=== PATIENT | female | born 1960 | race Caucasian/White ===

== ENCOUNTER 2016-04-01 10:38 | Day surgery (SDC) | payer OTHER ==
[~2016-04-01] VITALS: Ht 167.6 cm; Wt 72.7 kg
[~2016-04-01 10:38] MED LIST: HYDR-3812 PO; KETO10TA PO; ONDA4TAB8 PO; PANT40TA2 PO
--- OUTSIDE RECORDS SUMMARY | 2016-04-01 10:42 | XMS REPORT | Continuity of Care Document ---
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 Phone NO, LOCAL PHYSICIAN PCP Unavailable Insurance Providers Payer Name Policy Number Subscriber Name Relationship Unknown Briseyda Gonzalez 18 Self / Same As Patient Advance Directives Directive Response Recorded Date/Time Advance Directives No 12/20/15 6:38pm Resuscitation Status Full Code 12/20/15 6:38pm Chief Complaint and Reason for Visit Chief Complaint Abdominal/GI Problems Reason for Visit Cyst of right ovary Cholelithiasis Problems Active Problems Medical Problem Onset Date Status Cholelithiasis Unknown Acute Cyst of right ovary Unknown Acute Medications Current Home Medications Medication Dose Units Route Directions Days/Qty Instructions Start Date Ondansetron 4 Mg 4 Mg Oral Every 4HRS for Nausea/Vomiting 10 12/20/15 Pantoprazole Sodium 40 Mg 40 Mg Oral Daily 15 12/20/15 Ketorolac Tromethamine 10 Mg 10 Mg Oral Every 6 Hours for Pain 15 Social History Social History Problem Response Recorded Date/Time Alcohol Use Denies Use 12/20/2015 6:38pm Recreational Drug Use No 12/20/2015 6:38pm Recent Foreign Travel No 12/20/2015 6:36pm Recent Infectious Disease Exposure No 12/20/2015 6:36pm Hospitalization with Isolation Denies 12/20/2015 6:36pm Smoking Status Never a Smoker 12/20/2015 6:38pm Recent Hopitalizations No 12/20/2015 6:38pm Hospitalization with Isolation Denies 12/20/2015 6:36pm Query Response Start Date Stop Date Smoking Status Never a Smoker Hospital Discharge Instructions No hospital discharge instructions. Plan of Care Discharge Date 12/20/15 8:35pm Disposition 01 HOME, SELF-CARE Condition at Discharge Improved Instructions/Education Provided Ovarian Cyst (ED) Cholelithiasis (ED) Prescriptions See Medication Section Referrals THANIA TORRES MD - ,LOCAL PHYSICIAN - Primary Care Physician Additional Instructions/Education CLEAR LIQUIDS--WATER, BROTH, JELLO, GATORADE BRATS DIET--BANANAS, RICE, APPLESAUCE, TOAST, SALTINES FOLLOW UP WITH DR. TORRES THIS WEEK FOR FURTHER CARE All discharge instructions reviewed with patient and/or family. Voiced understanding. Functional Status No functional status results. Allergies, Adverse Reactions, Alerts No known allergies. Immunizations No immunization records. Vital Signs Acute Vital Signs Vital Response Date/Time Temperature (Fahrenheit) 97.6 degrees F (97.6 - 99.5) 12/20/2015 6:36pm Temperature (Calculated Celsius) 36.59888 degrees C (36.4 - 37.5) 12/20/2015 6:36pm Pulse Rate (adult) 95 bpm (60 - 90) 12/20/2015 6:36pm Respiratory Rate 18 bpm (12 - 24) 12/20/2015 6:36pm Blood Pressure 156/85 mm Hg 12/20/2015 6:36pm Blood Pressure Mean 108 mm Hg 12/20/2015 6:36pm Pain Numeric Pain Scale 4 12/20/2015 6:36pm Height (Feet) 5 feet 12/20/2015 6:36pm Height (Inches) 6 inches 12/20/2015 6:36pm Height (Calculated Centimeters) 167.399688 cm 12/20/2015 6:36pm Weight (Pounds) 163 pounds 12/20/2015 6:36pm Weight (Calculated Kilograms) 73.696510 kilograms 12/20/2015 6:36pm Capillary Refill Capillary Refill Less Than 3 Seconds 12/20/2015 6:36pm Height 5 ft 6 in Weight 163 lb Body Mass Index 26.3 kg/m^2 Results Laboratory Results Test Name Result Units Flags Reference Collection Date/Time Result Date/ Time Comments White Blood Count 8.6 10^3/uL 4.3-11.0 12/20/2015 6:49pm 12/20/2015 6: 59pm Red Blood Count 4.80 10^6/uL 4.35-5.85 12/20/2015 6:49pm 12/20/2015 6: 59pm Hemoglobin 14.5 G/DL 11.5-16.0 12/20/2015 6:49pm 12/20/2015 6:59pm Hematocrit 43 % 35-52 12/20/2015 6:49pm 12/20/2015 6:59pm Mean Corpuscular Volume 89 FL 80-99 12/20/2015 6:49pm 12/20/2015 6: 59pm Mean Corpuscular Hemoglobin 30 PG 25-34 12/20/2015 6:49pm 12/20/2015 6: 59pm Mean Corpuscular Hemoglobin Concent 34 G/DL 32-36 12/20/2015 6:49pm 6:59pm Red Cell Distribution Width 13.5 % 10.0-14.5 12/20/2015 6:49pm 2015 6:59pm Platelet Count 286 10^3/uL 130-400 12/20/2015 6:49pm 12/20/2015 6:59pm Mean Platelet Volume 10.1 FL 7.4-10.4 12/20/2015 6:49pm 12/20/2015 6: 59pm Neutrophils (%) (Auto) 63 % 42-75 12/20/2015 6:49pm 12/20/2015 6:59pm Lymphocytes (%) (Auto) 26 % 12-44 12/20/2015 6:49pm 12/20/2015 6:59pm Monocytes (%) (Auto) 10 % 0-12 12/20/2015 6:49pm 12/20/2015 6:59pm Eosinophils (%) (Auto) 1 % 0-10 12/20/2015 6:49pm 12/20/2015 6:59pm Basophils (%) (Auto) 1 % 0-10 12/20/2015 6:49pm 12/20/2015 6:59pm Neutrophils # (Auto) 5.4 X 10^3 1.8-7.8 12/20/2015 6:49pm 12/20/2015 6: 59pm Lymphocytes # (Auto) 2.2 X 10^3 1.0-4.0 12/20/2015 6:49pm 12/20/2015 6: 59pm Monocytes # (Auto) 0.9 X 10^3 0.0-1.0 12/20/2015 6:49pm 12/20/2015 6: 59pm Eosinophils # (Auto) 0.1 10^3/uL 0.0-0.3 12/20/2015 6:49pm 12/20/2015 6 :59pm Basophils # (Auto) 0.0 10^3/uL 0.0-0.1 12/20/2015 6:49pm 12/20/2015 6: 59pm Urine Color YELLOW 12/20/2015 6:45pm 12/20/2015 7:08pm Urine Clarity CLEAR 12/20/2015 6:45pm 12/20/2015 7:08pm Urine pH 6 5-9 12/20/2015 6:45pm 12/20/2015 7:08pm Urine Specific [place] 1.010 * 1.016-1.022 12/20/2015 6:45pm 2015 7:08pm Urine Protein NEGATIVE NEGATIVE 12/20/2015 6:45pm 12/20/2015 7:08pm Urine Glucose (UA) NEGATIVE NEGATIVE 12/20/2015 6:45pm 12/20/2015 7: 08pm Urine RBC (Auto) NEGATIVE NEGATIVE 12/20/2015 6:45pm 12/20/2015 7: 08pm Urine Ketones NEGATIVE NEGATIVE 12/20/2015 6:45pm 12/20/2015 7:08pm Urine Nitrite NEGATIVE NEGATIVE 12/20/2015 6:45pm 12/20/2015 7:08pm Urine Bilirubin NEGATIVE NEGATIVE 12/20/2015 6:45pm 12/20/2015 7: 08pm Urine Urobilinogen NORMAL MG/DL NORMAL 12/20/2015 6:45pm 12/20/2015 7: 08pm Urine Leukocyte Esterase 2+ * NEGATIVE 12/20/2015 6:45pm 12/20/2015 7: 08pm Urine RBC NONE /HPF 12/20/2015 6:45pm 12/20/2015 7:08pm Urine WBC 5-10 /HPF * 12/20/2015 6:45pm 12/20/2015 7:08pm Urine Bacteria NEGATIVE /HPF 12/20/2015 6:45pm 12/20/2015 7:08pm Urine Squamous Epithelial Cells 5-10 /HPF 12/20/2015 6:45pm 2015 7:08pm Urine Crystals NONE /LPF 12/20/2015 6:45pm 12/20/2015 7:08pm Urine Casts NONE /LPF 12/20/2015 6:45pm 12/20/2015 7:08pm Urine Mucus NEGATIVE /LPF 12/20/2015 6:45pm 12/20/2015 7:08pm Urine Culture Indicated YES 12/20/2015 6:45pm 12/20/2015 7:08pm Sodium Level 144 MMOL/L 135-145 12/20/2015 6:49pm 12/20/2015 7:25pm Potassium Level 3.7 MMOL/L 3.6-5.0 12/20/2015 6:49pm 12/20/2015 7:25pm Chloride Level 105 MMOL/L 98-107 12/20/2015 6:49pm 12/20/2015 7:25pm Carbon Dioxide Level 25 MMOL/L 21-32 12/20/2015 6:49pm 12/20/2015 7: 25pm Anion Gap 14 MMOL/L 5-14 12/20/2015 6:49pm 12/20/2015 7:25pm Blood Urea Nitrogen 16 MG/DL 7-18 12/20/2015 6:49pm 12/20/2015 7:25pm Creatinine 0.78 MG/DL 0.60-1.30 12/20/2015 6:49pm 12/20/2015 7:25pm BUN/Creatinine Ratio 21 12/20/2015 6:49pm 12/20/2015 7:25pm Estimat Glomerular Filtration Rate > 60 12/20/2015 6:49pm 2015 7:25pm GFR INTERPRETIVE DATA UNITS FOR ESTIMATED GFR (eGFR): mL/min/1.73 M2 REFERENCE RANGE FOR ESTIMATED GFR (eGFR) eGFR NORMAL eGFR >60 MODERATELY DECREASED eGFR 30-59 SEVERLY DECREASED eGFR 15-29 KIDNEY FAILURE <15 (OR DIALYSIS) Glucose Level 93 MG/DL 70-105 12/20/2015 6:49pm 12/20/2015 7:25pm Calcium Level 9.7 MG/DL 8.5-10.1 12/20/2015 6:49pm 12/20/2015 7:25pm Total Bilirubin 0.5 MG/DL 0.1-1.0 12/20/2015 6:49pm 12/20/2015 7:25pm Alkaline Phosphatase 66 U/L 40-136 12/20/2015 6:49pm 12/20/2015 7:25pm Aspartate Amino Transf (AST/SGOT) 24 U/L 5-34 12/20/2015 6:49pm 2015 7:25pm Alanine Aminotransferase (ALT/SGPT) 18 U/L 0-55 12/20/2015 6:49pm 12/19 7:25pm Total Protein 7.4 G/DL 6.4-8.2 12/20/2015 6:49pm 12/20/2015 7:25pm Albumin 4.9 G/DL H 3.2-4.5 12/20/2015 6:49pm 12/20/2015 7:25pm Amylase Level 63 U/L 25-125 12/20/2015 6:49pm 12/20/2015 7:25pm Lipase 18 U/L 8-78 12/20/2015 6:49pm 12/20/2015 7:25pm Procedures No known history of procedures. Encounters Encounter Location Arrival/Admit Date Discharge/Depart Date Attending Provider Departed Emergency Room [facility] 12/20/15 6:02pm 12/19 8:35pm LITO MON DO Recent Diagnosis
[2016-04-01] MEDS ORDERED: ceFAZolin 1,000 MG (ANCEF) VIAL ONE (10:43)
[2016-04-01] MEDS ORDERED: NORMAL SALINE (BAXTER MINI) 50 ML IV ONE (10:43)
--- OUTSIDE RECORDS SUMMARY | 2016-04-01 10:43 | XMS REPORT | Continuity of Care Document ---
Author Author [facility] Organization 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 Phone NO, LOCAL PHYSICIAN PCP [...] - 99.5) 12/20/2015 6:36pm Temperature (Calculated Celsius) 36.84050 degrees C (36.4 - 37.5) 12/20/2015 6:36pm Pulse Rate (adult) 95 bpm (60 - 90) 12/20/2015 6:36pm Respiratory Rate 18 bpm (12 - 24) 12/20/2015 6:36pm Blood Pressure 156/85 mm Hg 12/20/2015 6:36pm Blood Pressure Mean 108 mm Hg 12/20/2015 6:36pm Pain Numeric Pain Scale 4 12/20/2015 6:36pm Height (Feet) 5 feet 12/20/2015 6:36pm Height (Inches) 6 inches 12/20/2015 6:36pm Height (Calculated Centimeters) 167.218087 cm 12/20/2015 6:36pm Weight (Pounds) 163 pounds 12/20/2015 6:36pm Weight (Calculated Kilograms) 73.957577 kilograms 12/20/2015 6:36pm Capillary Refill Capillary Refill [...] 5-9 12/20/2015 6:45pm 12/20/2015 7:08pm Urine Specific [place] 1.010 * 1.016-1.022 12/20/2015 6:45pm 2015 7:08pm [...] Date Attending Provider Departed Emergency Room [facility] 12/20/15 6:02pm 12/19 8:35pm LITO MON DO Recent Diagnosis
[2016-04-01] MEDS ORDERED: ceFAZolin 1 GM/NS 50 ML IVPB IV ONE ×2 (11:00)
[2016-04-01 11:36] VITALS: BP 157/69
[2016-04-01] MEDS ORDERED: BUP/EPI 0.25% 1:200,000 (MARCAINE) 30 ML VIAL ONE (11:42)
[2016-04-01] MEDS ORDERED: SEVOFLURANE (ULTANE) 15 ML INHAL SOLN ONE ×5 (11:56→13:50)
[2016-04-01] MEDS ORDERED: ROCURONIUM 50 MG/5 ML (ZEMURON) VIAL IV ONE ×2 (11:56→13:37)
[2016-04-01] MEDS ORDERED: DEXAMETHASONE PF 10 MG/ML (DECADRON) VIAL ONE (11:56)
[2016-04-01] MEDS ORDERED: LIDOCAINE PF 2% 10 ML (XYLOCAINE) AMP ONE (11:56)
[2016-04-01] MEDS ORDERED: ONDANSETRON 4 MG/2 ML (SDV) Z0FRAN ONE (11:56)
[2016-04-01] MEDS ORDERED: proPOfol 200 MG/20 ML (DIPRIVAN) VIAL IV ONE (11:56)
[2016-04-01] MEDS ORDERED: fentaNYL INJECTION 250 MCG/5 ML AMP ONE (11:56)
[2016-04-01] MEDS ORDERED: MIDAZOLAM 2 MG/2 ML (VERSED) VIAL ONE (11:56)
[2016-04-01] MEDS ORDERED: LACTATED RINGERS 1,000 ML IV ONE (11:56)
[2016-04-01] MEDS ORDERED: D5 LR IV SOLUTION 1,000 ML IV SCH (12:09)
--- NOTE | 2016-04-01 12:09 | Progress Note-Pre Operative ---
Pre-Operative Progress Note H&P Reviewed The H&P was reviewed, patient examined and no changes noted. Date H&P Reviewed: Apr 01, 2016 Time H&P Reviewed: 12:09 Pre-Operative Diagnosis: complex right pelvic mass/uterine prolapse JOSIAH CHAVEZ MD Apr 01, 2016 12:09 pm
[2016-04-01] MEDS ORDERED: oxyCODONE/APAP 10/325MG (PERCOCET 10) TABLET PO PRN (12:15)
[2016-04-01] MEDS ORDERED: MEPERIDINE (DEMEROL) INJ 100 MG/ML IM PRN (12:15)
[2016-04-01] MEDS ORDERED: ESTROGENS CONJ IV 25 MG/5 ML (PREMARIN) VIAL IVP ONE (12:15)
[2016-04-01] MEDS ORDERED: ONDANSETRON 4 MG/2 ML (SDV) Z0FRAN IVP PRN ×2 (12:15→15:00)
[2016-04-01] MEDS ORDERED: PROMETHAZINE INJ 25 MG/ML (PHENERGAN) AMP IM PRN (12:15)
[2016-04-01] MEDS: LACTATED RINGERS 1,000 ML IV SCH ×2 (13:00→15:17)
[2016-04-01] MEDS ORDERED: morphine INJ 10 MG/ML 1ML (SYR OR VIAL) ONE (13:29)
[2016-04-01] MEDS ORDERED: HYDROmorphone (DILAUDID) 2 MG/ML VIAL ONE (13:29)
[2016-04-01] MEDS ORDERED: WATER (STERILE) FOR INJECTION 10 ML ONE (13:29)
[2016-04-01] MEDS: KETOROLAC 30 MG/ML VIAL IVP SCH ×3 (13:30→23:20)
[2016-04-01] MEDS ORDERED: NEOSTIGMINE (BLOXIVERZ ) 1 MG/1ML 10 ML VIAL ONE (13:45)
[2016-04-01] MEDS ORDERED: GLYCOPYRROLATE 0.2 MG/ML (ROBINUL) 2 ML VIAL ONE (13:45)
[2016-04-01] MEDS ORDERED: FUROSEMIDE 40 MG/4 ML INJ (LASIX) ONE (14:02)
[2016-04-01] MEDS ORDERED: MEPERIDINE (DEMEROL) INJ 50 MG/ML IVP PRN (15:00)
[2016-04-01] MEDS ORDERED: HYDROmorphone (DILAUDID) 2 MG/ML VIAL IVP PRN (15:00)
[2016-04-01] MEDS: morphine INJ 10 MG/ML 1ML (SYR OR VIAL) IVP PRN ×2 (15:05→15:16)
[2016-04-01 15:50] VITALS: BP 123/74
[2016-04-01 17:05] VITALS: BP 117/79
[2016-04-01 21:00] VITALS: BP 136/79
--- NOTE | 2016-04-01 21:50 | Anesthesia-General Post-Op ---
General Patient Condition Mental Status/LOC: Same as Preop Cardiovascular: Satisfactory Nausea/Vomiting: Absent Respiratory: Satisfactory Pain: Controlled Complications: Present (reports eye issues) Follow Up Care/Instructions Patient Instructions None needed. Anesthesia/Patient Condition Patient Condition Patient is doing well, no complaints of pain related to surgical site. However, nursing reports patient c/o eye pain. Pt found with wet rag draped across eyes, c/o burning sensation bilaterally "like someone has thrown sand in my eyes." Discussed eye care/protection that would have been utilized intraoperatively, ordered artificial tears to be given PRN throughout this evening. Will f/u with patient tomorrow re: eye status. NEREYDA SAWYER CRNA Apr 01, 2016 21:50
[2016-04-01] MEDS: ARTIFICAL TEARS 0.4 ML UNIT DOSE (REFRESH PLUS) OU PRN (22:08)
[2016-04-02 01:00] VITALS: BP 118/69
[2016-04-02 03:33] VITALS: BP 112/67
[2016-04-02] MEDS: KETOROLAC 30 MG/ML VIAL IVP SCH ×2 (03:33→06:15)
[2016-04-02] MEDS: ARTIFICAL TEARS 0.4 ML UNIT DOSE (REFRESH PLUS) OU PRN (03:33)
--- NOTE | 2016-04-02 08:46 | Progress Note-Standard ---
Standard Progress Note Progress Notes/Assess & Plan Progress/Assessment & Plan patient is without complaint she is ambulating, voiding, tolerating by mouth well, denies chest pain, denies shortness of breath, denies headache, denies nausea vomiting, is requesting discharge home. Vital Signs Date Time Temp Pulse Resp B/P Pulse Ox O2 Delivery O2 Flow Rate FiO2 04/02/16 03:33 98.4 78 16 112/67 98 Room Air 04/02/16 01:00 98.1 81 16 118/69 99 Room Air 04/01/16 21:00 98.0 88 16 136/79 99 Room Air 04/01/16 19:57 Room Air 04/01/16 17:05 97.8 79 16 117/79 98 Room Air 04/01/16 15:50 97.3 73 18 123/74 97 Room Air 04/01/16 11:36 98.3 88 18 157/69 98 Room Air I & O 04/02/16 07:00 Intake Total 2400 ml Output Total 3450 ml Balance -1050 ml abdomen is benign Extreme show clubbing cyanosis. There is no Homans sign. Assessment and plan is operative day number 1 doing well. Patient has had normal urine output. Plan is for discharge home with follow-up in clinic Final Diagnosis complex pelvic mass with pathology pending JOSIAH CHAVEZ MD Apr 02, 2016 8:46 am
[2016-04-02] MEDS ORDERED: ESTR1TAB24 PO (08:48)
[2016-04-02] MEDS ORDERED: DOCU100C37 PO (08:48)
[2016-04-02] MEDS ORDERED: IBUP-1780 PO (08:48)
[2016-04-02] MEDS ORDERED: OXYC-465 PO (08:48)
--- NOTE | 2016-04-02 08:49 | Discharge Instructions ---
Discharge Instructions Discharge Medications New, Converted or Re-Newed RX: RX on Chart Patient Instructions Patient Instructions: as directed Return to The Hospital For: as directed Activity & Diet Discharge Diet: No Restrictions Activity as Tolerated: No Orders-Post D/C & Referrals Follow Up Appt: return to clinic next Monday April 06, 2015 at 930 a.m. for staple removal Call to make follow up appt. for patient in 4 weeks. Activity: Rest for 24 hours, than as tolerated. Wound Care: May remove Band-Aid tomorrow. Replace as desired. Keep incisions clean and dry. Wash daily with soap and water. Please call in RX to patient pharmacy. Diet: As tolerated-Clear Liquids only if nauseated. Tomorrow, may shower or tub bathe as desired. No driving for 24 hours, no alcoholic beverages for 24 hours, and nothing per vagina (no tampons, douching, or intercourse) for 8 weeks. Patient to return to the clinic as soon as possible for: Temperature greater than 101F, Severe Pain, Foul discharge from incision or vagina, Excessive Bleeding (more than a period). JOSIAH CHAVEZ MD Apr 02, 2016 8:49 am
[2016-04-02] MEDS ORDERED: ESTRADIOL 1 MG TAB (ESTRACE) PO SCH (09:00)
[2016-04-02] MEDS ORDERED: DOCUSATE SODIUM 100 MG (COLACE) CAP PO SCH (09:00)
--- NOTE | 2016-04-02 09:11 | Anesthesia-General Post-Op ---
General Patient Condition Mental Status/LOC: Same as Preop Cardiovascular: Satisfactory Nausea/Vomiting: Absent Respiratory: Satisfactory Pain: Controlled Complications: Absent Post Op Complications Complications None Follow Up Care/Instructions Patient Instructions None needed. Anesthesia/Patient Condition Patient Condition Patient is doing well, no complaints, stable vital signs, no apparent adverse anesthesia problems. No complications reported per nursing. Pt states no longer having any pain or burning sensation in her eyes, and that they feel like they are back to normal preoperative state. No further issues reported. Dr. Whitehead at bedside, pt to be discharged to home today. NEREYDA SAWYER CRNA Apr 02, 2016 09:11
[2016-04-02 09:40] VITALS: BP 120/74
[2016-04-02] MEDS ORDERED: FLU TRIvalent (5 YOA+) 2016-17 (AFLURIA) 0.5 ML IM ONE (10:30)
[2016-04-02] MEDS ORDERED: IBUPROFEN 800 MG (MOTRIN) TAB PO SCH (12:15)
--- NOTE | 2016-04-04 08:18 | OPERATIVE REPORT ---
PROCEDURE PHYSICIAN: JOSIAH CHAVEZ DATE OF PROCEDURE: 04/01/2016 DATE OF DICTATION: 04/01/2016 PREOPERATIVE DIAGNOSES: 1. Pelvic pain. 2. Complex pelvic mass. 3. Some uterine descensus. POSTOPERATIVE DIAGNOSES: 1. Pelvic pain. 2. Complex pelvic mass. 3. Some uterine descensus. 4. Pathology pending. 5. Extensive endometriosis. 6. Extensive adhesions. OPERATIVE PROCEDURE: 1. Total laparoscopic hysterectomy with bilateral salpingo-oophorectomy. 2. Extensive adhesiolysis. 3. Postprocedure cystoscopy. OPERATIVE DESCRIPTION: With the patient in supine position, under satisfactory general anesthesia, she was repositioned in dorsal lithotomy position in the [facility] and prepped and draped in usual fashion for abdominal and vaginal surgery. The urinary bladder but was emptied via Gonzalez catheter to dependent drainage. The cervix was grasped anteriorly with single-tooth tenaculum after placing a weighted speculum was posteriorly in the vagina. The cervix was elevated and an attempt was made to sound the uterus. The uterus and cervix were quite fibrotic and quite dense. I was able to sound to 9 cm but I was fairly certain I was not completely in the endometrial cavity. I did go ahead and place the CHIQUITA 2 manipulator using the smallest uterine probe and a 30 mm colpotomy ring. Sutures of number 1 Vicryl were placed at 3 and 9 o'clock positions to affix the manipulator to the uterus. The patient was then brought into low dorsal lithotomy position. A 12 mm incision was made superior to the umbilicus and Veress needle was placed through that incision and correct placement confirmed with the water drop test and the abdomen was insufflated with 2.4 liters of carbon dioxide and the Veress needle was removed and a 12 mm port placed. The abdominal wall was transilluminated and ports of 8 mm were placed 9 cm lateral to the umbilicus on the right and the left. The patient was placed in Trendelenburg, allowing the bowel was spilled up out of the pelvis and then the da Alejo column was advanced onto the patient and docked and operative instruments were placed in the right and left ports and then I retired to the da Alejo console. At the da Alejo console, using a monopolar shear on the right and bipolar fenestrated grasper on the left, the pelvis was first examined. There was extensive endometriosis. There was a huge endometrioma involving most of the right ovary. There was a simple cyst also occupying the right ovary. The right fallopian tube was dense and attached to the pelvic sidewall as was the ovary that also attached to the posterior surface of the uterus. The left ovary was somewhat atretic looking, but there were extensive adhesions all way across the cul-de-sac, obliterating the cul-de-sac with endometriosis. The laparoscope was rotated. The appendix was seen. It was normal vermiform appendix. The upper abdomen examined. There was no abnormal pathology noted there. Laparoscope was brought back to the pelvis. Extensive adhesiolysis was first undertaken in the cul-de-sac freeing the uterus from the adhesions in the cul-de-sac. It was evident that the uterine manipulator had perforated just right to the dome of the uterus, but that only penetrated about 3 or 4 mm. There was no damage or trauma to any of the intraperitoneal organs. Adhesiolysis was taken until the cul-de-sac was from the lower uterine segment. Again, there was extensive scarring and extensive distortion. The ovary was freed and once the ovary was freed in the process, an endometrioma was perforated with toothpaste consistency, chocolate extruding from the cyst. This was eventually evacuated out. The pelvis was irrigated. The vessel sealer was then placed and using the vessel sealer on the IP ligament on the right, the IP ligament was clamped, cauterized, and divided over to the side of the uterus going across the broad ligament and the round ligaments within the process. The same procedure was formed on the left, allowing for removal of both tubes and ovaries with the uterus. Dissection was carried through the posterior lower uterine segment down until the vaginal cavity was entered just above the colpotomy ring. This was to ensure being well above the colpotomy ring rather than down past the colpotomy ring. The attention was then turned anteriorly. The lower uterine segment and peritoneum was divided. The bladder was dissected down off the lower uterine segment and then colpotomy incision was made at 12 o'clock position, continued circumferentially clockwise to the 2 o'clock position and counterclockwise to the 4 o'clock position and then dissection was carried posteriorly until the entire colpotomy ring was exposed. Blood vessels that were encountered along the way were clamped, cauterized, and then divided. With the corpus cervix uteri freed, with the tubes and ovaries still attached, the entire specimen mass was brought out through the vagina. The vaginal cuff was then closed with 2 sutures of V-LOC barbed suture, starting first from the right angle and continued to the midpoint and then from the left angle to the midpoint. The anterior peritoneum was brought back down onto the cuff as was the posterior. Hemostasis was complete on completion of the procedure. Neither ureter was completely visible during the procedure and after completion, the ureters could not be visualized. I was comfortable the entire procedure that I was well away from the ureters. None of the tissue was in the range or in the area that the ureters would occupied but on completion of the procedure cystoscopy was performed. Now with the procedure complete and bleeding and no abnormal pathology of concern remaining, the procedure was terminated. The operative instruments were removed under direct vision as were the ports. The abdomen was evacuated of the insufflating gas in the process of removing the ports. The skin incisions were stapled and the fascia at the supraumbilical incision was closed with [id number] suture of 2-0 Vicryl. Cystoscopy was then performed using a saline as a distending medium. Both ureter orifices were seen and eventually after 10 mg of Lasix had been given, free efflux was seen from both ureters. This was confirmed by all the attendees of the surgery with the camera attached to the cystoscope. With that confirmed, the procedure was complete and terminated. Sponge and needle counts were correct. Estimated blood loss was minimal. The patient tolerated the procedure well and was uneventfully awakened from general anesthesia and transferred to recovery room in stable condition. 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
== END 2016-04-02 10:05 | disposition home or self-care (01) ==
LOC: SDC 10:38 → WS 15:45 → SDC 04-02 10:05
PROVIDERS: ATTEND Obstetrics & Gynecology
DX: R10.2 Pelvic and perineal pain (principal); N80.1 Endometriosis of ovary; N80.3 Endometriosis of pelvic peritoneum; N80.2 Endometriosis of fallopian tube; N73.6 Female pelvic peritoneal adhesions (postinfective); N81.4 Uterovaginal prolapse, unspecified; D25.1 Intramural leiomyoma of uterus; D25.2 Subserosal leiomyoma of uterus; D27.0 Benign neoplasm of right ovary; N83.8 Other noninflammatory disorders of ovary, fallopian tube and broad ligament
CPT/HCPCS: 84703; 94664; 96361; 96375; 96376

== ENCOUNTER → 2017-03-14 | Outpatient (CLI) | payer OTHER ==
[~2017-03-14] MED LIST changes: +DOCU100C37 PO; +ESTR1TAB24 PO; +IBUP-1780 PO; +OXYC-465 PO
--- NOTE | 2017-03-14 17:13 | Diagnostic Imaging Report ---
Bilateral screening mammogram 2D views with tomosynthesis The current study was also evaluated with a Computer Aided Detection (CAD) system. Indication: Screening. No current complaints stated on the questionnaire. COMPARISON: 09/29/2015. Findings: The breasts are composed of heterogeneously dense parenchyma with global asymmetry on the right side similar to the prior exams. This is reportedly stable from 04/16/2012 previous exam based on the report from the previous study of 2015. Benign-appearing calcifications. Allowing for technique and positional differences, no suspicious change is seen. IMPRESSION: No significant change. ACR BI-RADS Category 2: Benign findings. Result letter will be mailed to the patient. Note: At least 10% of breast cancer is not imaged by mammography. . Dictated by: Dictated on workstation # [id number]
== END ==
LOC: RAD 10:15
PROVIDERS: ATTEND Obstetrics & Gynecology
DX: Z12.31 Encounter for screening mammogram for malignant neoplasm of breast (principal)
CPT/HCPCS: 77067

== ENCOUNTER 2017-10-12 08:00 | Outpatient (CLI) | payer OTHER ==
[~2017-10-12] VITALS: Ht 167.6 cm; Wt 72.7 kg
[~2017-10-12 08:00] MED LIST changes: +ACHD5005 PO; -HYDR-3812 PO
[2017-10-23] MEDS ORDERED: IBUP-1773 PO (13:17)
== END 2017-10-12 08:32 ==
LOC: PREOP 08:00
PROVIDERS: ATTEND Surgery
DX: Z01.818 Encounter for other preprocedural examination (principal); D17.1 Benign lipomatous neoplasm of skin and subcutaneous tissue of trunk

== ENCOUNTER 2017-10-23 10:18 | Day surgery (SDC) | payer OTHER ==
[~2017-10-23] VITALS: Ht 167.6 cm; Wt 72.7 kg
[2017-10-23] MEDS ORDERED: ceFAZolin INJECTION 1,000 MG in NS (IVPB) 50 ML IV ONE (10:30)
[2017-10-23 10:35] VITALS: BP 165/81
[2017-10-23] MEDS ORDERED: LACTATED RINGERS 1,000 ML IV PRN (10:56)
[2017-10-23] MEDS ORDERED: SCOPOLAMINE 1.5 MG (TRANSDERM-SCOP) PATCH TOP ONE (11:00)
[2017-10-23] MEDS ORDERED: ONDANSETRON 4 MG/2 ML (SDV) Z0FRAN IV ONE (11:00)
[2017-10-23] MEDS ORDERED: FAMOTIDINE 20MG/2ML IV (PEPCID) IV ONE (11:00)
[2017-10-23] MEDS ORDERED: BUP/EPI 0.5% 1:200,000 (SENSORCAINE) 30 ML VIAL ONE (11:54)
[2017-10-23] MEDS ORDERED: ATRACURIUM 50 MG/5 ML (TRACRIUM) IV ONE ×2 (11:58→12:06)
[2017-10-23] MEDS ORDERED: HURRICAINE EXT TUBE (BENZOCAINE) ONE (12:00)
[2017-10-23] MEDS ORDERED: proPOfol 200 MG/20 ML (DIPRIVAN) VIAL IV ONE (12:00)
[2017-10-23] MEDS ORDERED: DEXAMETHASONE 10 MG/ML (DECADRON) 1 ML VIAL ONE (12:00)
[2017-10-23] MEDS ORDERED: SEVOFLURANE (ULTANE) 15 ML INHAL SOLN ONE ×3 (12:00→13:09)
[2017-10-23] MEDS ORDERED: fentaNYL INJECTION 100 MCG/2 ML AMP ONE (12:00)
[2017-10-23] MEDS ORDERED: LIDOCAINE PF 2% 5 ML (XYLOCAINE) VIAL ONE (12:00)
[2017-10-23] MEDS ORDERED: LACTATED RINGERS 1,000 ML IV ONE (12:00)
[2017-10-23] MEDS ORDERED: MIDAZOLAM 2 MG/2 ML (VERSED) VIAL ONE (12:01)
[2017-10-23] MEDS: LACTATED RINGERS 1,000 ML IV PRN ×2 (12:25→13:30)
--- NOTE | 2017-10-23 12:30 | Progress Note-Pre Operative ---
Pre-Operative Progress Note H&P Reviewed The H&P was reviewed, patient examined and no changes noted. Date Seen by Provider: Oct 03, 2017 Time Seen by Provider: 12:00 Date H&P Reviewed: Oct 23, 2017 Time H&P Reviewed: 12:29 Pre-Operative Diagnosis: Lipoma- left posterior axillary fold THANIA TORRES MD Oct 23, 2017 12:30 pm
[2017-10-23] MEDS ORDERED: NEOSTIGMINE 1 MG/ML 5 ML SYRINGE ONE (13:01)
[2017-10-23] MEDS ORDERED: GLYCOPYRROLATE 0.2 MG/ML (ROBINUL) 2 ML VIAL ONE (13:01)
--- NOTE | 2017-10-23 13:16 | Operative Report ---
Operative Report Date of Procedure/Surgery Oct 23, 2017 Surgeon (s) THANIA TORRES MD Deck Officer (s): N/a Post-Operative Diagnosis Same Procedure Performed Excision Description of Procedure Anesthesia Type: General Estimated blood loss (mL): Minimal Specimen(s) collected/removed Lipoma Description of the Procedure Indication for the procedure: This lady presented with a long-standing, large indirect lipoma over the left scapular region measuring at least 10 cm in diameter. At her request, excision was offered. Informed consent was obtained after reviewing the operative details and complications of hematoma, wound infection and recurrence. Description of the procedure: She was placed supine on the operative table and general anesthetic., She was placed in right lateral decubitus position, to achieve optimal exposure of the involved. Ancef was administered intravenously as prophylaxis against wound infection. Preemptive analgesia was established using 0.5 percent Marcaine with epinephrine. An elliptical incision about 10 cm in length was made and the lipoma excised intact. Hemostasis achieved using cautery and the incision closed using 3-0 Vicryl closing subcutaneous tissues and 4-0 Vicryl for skin, in a subcuticular fashion. Steri-Strips and a nonadherent dressing were applied. He tolerated the procedure well, was turned supine before being extubated and taken to the recovery room in a stable condition. Findings of the Procedure see op report Allergies and Home Medications Allergies Coded Allergies: hydrocodone (Verified Allergy, Mild, NAUSEA, 10/12/17) Home Medications Estradiol 1 Mg Tablet, 1 MG PO DAILY Prescribed by: JOSIAH VERDE on 04/02/16 0616 Patient Home Medication List Home Medication List Reviewed: Yes THANIA TORRES MD Oct 23, 2017 1:16 pm
[2017-10-23] MEDS ORDERED: IBUP-1773 PO (13:17)
--- NOTE | 2017-10-23 13:18 | Discharge Inst-Simple/Standard ---
Discharge Inst-Standard Discharge Medications New, Converted or Re-Newed RX: RX on Chart Patient Instructions/Follow Up Plan of Care/Instructions/FU: Dressings off in 48 hours. Follow-up when necessary. No sutures to be removed Activity as Tolerated: Yes Discharge Diet: No Restrictions THANIA TORRES MD Oct 23, 2017 1:18 pm
[2017-10-23 14:05] VITALS: BP 130/78
--- NOTE | 2017-10-23 14:08 | Anesthesia-General Post-Op ---
General Patient Condition Mental Status/LOC: Same as Preop Cardiovascular: Satisfactory Nausea/Vomiting: Absent Respiratory: Satisfactory Pain: Controlled Complications: Absent Post Op Complications Complications None Follow Up Care/Instructions Patient Instructions None needed. Anesthesia/Patient Condition Patient Condition Patient is doing well, no complaints, stable vital signs, no apparent adverse anesthesia problems. No complications reported per nursing. D/C home per [facility] [place] Criteria: Yes ISI PALOMINO CRNA Oct 23, 2017 14:08
[2017-10-23] MEDS ORDERED: IBUPROFEN TABLET 200 MG TAB PO ONE (14:11)
[2017-10-23] MEDS ORDERED: IBUPROFEN 600 MG (MOTRIN) TAB PO ONE (14:30)
[2017-10-23 14:35] VITALS: BP 144/75
[2017-10-23 14:58] VITALS: BP 144/75
[2017-10-23 15:04] VITALS: BP 108/75
== END 2017-10-23 15:10 | disposition home or self-care (01) ==
LOC: SDC 10:18
PROVIDERS: ATTEND Surgery
DX: D17.1 Benign lipomatous neoplasm of skin and subcutaneous tissue of trunk (principal); Z11.2 Encounter for screening for other bacterial diseases
CPT/HCPCS: 87081

== ENCOUNTER → 2018-03-26 | Outpatient (CLI) | payer OTHER ==
[~2018-03-26] MED LIST changes: +IBUP-1773 PO
--- NOTE | 2018-03-28 08:58 | Diagnostic Imaging Report ---
Digital mammogram and bilateral screening with 3-D tomosynthesis and CAD. The study was compared to prior exams of 03/14/2017, 09/29/2015 and 03/06/2015. At this time there are no current complaints. There are scattered fibroglandular densities in both breasts which could obscure a lesion. As noted on the previous exam, there is an asymmetric collection of fibroglandular tissue in the upper-outer aspect of the right breast. This appears stable. There is no primary or secondary sign of malignancy noted. Impression: There is no evidence of malignancy. ACR BI-RADS Category 1: Negative. Result letter will be mailed to the patient. Note: At least 10% of breast cancer is not imaged by mammography. Dictated by: Dictated on workstation # [id number]
== END ==
LOC: RAD 08:13
PROVIDERS: ATTEND Obstetrics & Gynecology
DX: Z12.31 Encounter for screening mammogram for malignant neoplasm of breast (principal)
CPT/HCPCS: 77067

== ENCOUNTER → 2019-04-02 | Outpatient (CLI) | payer OTHER ==
--- NOTE | 2019-04-02 13:13 | Diagnostic Imaging Report ---
INDICATION: Routine screening. COMPARISON: 03/26/2018 and 03/14/2017. TECHNIQUE: 2D and 3D bilateral screening mammography was performed with CAD. FINDINGS: Scattered fibroglandular densities are identified bilaterally. The area of parenchymal asymmetry in the upper outer right breast is stable. There is a questionable area of fat necrosis just inferior to this on the MLO view which appears stable. There are benign calcifications. No new mass or malignant appearing microcalcifications are seen. The axillae are unremarkable. IMPRESSION: No mammographic features suspicious for malignancy are identified. ACR BI-RADS Category 2: Benign findings. Result letter will be mailed to the patient. Note: At least 10% of breast cancer is not imaged by mammography. Dictated by: Dictated on workstation # [id number]
== END ==
LOC: RAD 08:51
PROVIDERS: ATTEND Obstetrics & Gynecology
DX: Z12.31 Encounter for screening mammogram for malignant neoplasm of breast (principal)
CPT/HCPCS: 77067

== ENCOUNTER → 2020-04-06 | Outpatient (CLI) | payer OTHER ==
[~2020-04-06] MED LIST changes: -OXYC-465 PO; +OXYC-556 PO
--- NOTE | 2020-04-06 11:30 | Diagnostic Imaging Report ---
Digital mammogram. Indication: Bilateral screening This study was compared to the prior exams of 04/02/2019, 03/26/2018 and 03/14/2017. At this time there are no current complaints. The current study was also evaluated with a Computer Aided Detection (CAD) system. FINDINGS: The fibroglandular tissue in both breasts is heterogeneously dense. This does limit the sensitivity of this exam. Overall, there does not appear to have been any significant change when compared to the prior study. No primary or secondary sign of malignancy is noted. IMPRESSION: There is no radiographic evidence for malignancy. ACR BI-RADS Category 1: Negative. Result letter will be mailed to the patient. Note: At least 10% of breast cancer is not imaged by mammography. Dictated by: Dictated on workstation # [id number]
== END ==
LOC: RAD 07:45
PROVIDERS: ATTEND Family Medicine
DX: Z12.31 Encounter for screening mammogram for malignant neoplasm of breast (principal)
CPT/HCPCS: 77063; 77067

== ENCOUNTER → 2021-04-08 | Outpatient (CLI) | payer OTHER ==
--- NOTE | 2021-04-08 09:03 | Diagnostic Imaging Report ---
INDICATION: Routine screening. COMPARISON is made with prior mammograms 04/06/2020 and 04/02/2019. 2-D and 3-D bilateral screening mammography was performed with CAD. Scattered fibroglandular densities are identified bilaterally. The overall breast parenchymal pattern appears stable. No mass or malignant-appearing microcalcifications are seen. There are benign-appearing calcifications scattered throughout both breasts. Axillae are unremarkable. IMPRESSION: BI-RADS Category 2 No mammographic features suspicious for malignancy are identified. ACR BI-RADS Category 2: Benign findings. Result letter will be mailed to the patient. Note: At least 10% of breast cancer is not imaged by mammography. Dictated by: Dictated on workstation # [id number]
== END ==
LOC: RAD 07:30
PROVIDERS: ATTEND Family Medicine
DX: Z12.31 Encounter for screening mammogram for malignant neoplasm of breast (principal)
CPT/HCPCS: 77063; 77067

== ENCOUNTER → 2022-04-11 | Outpatient (CLI) | payer OTHER ==
--- NOTE | 2022-04-11 09:11 | Diagnostic Imaging Report ---
INDICATION: Routine screening. Comparison is made with prior mammogram from 04/08/2021 and 04/06/2020. 2-D and 3-D bilateral screening mammography was performed with CAD. Scattered fibroglandular densities are identified bilaterally. The parenchymal pattern is stable. No mass or malignant-appearing microcalcifications are seen. There are benign calcifications. Axillae are unremarkable. IMPRESSION: No mammographic features suspicious for malignancy are identified. ACR BI-RADS Category 2: Benign findings. Result letter will be mailed to the patient. Note: At least 10% of breast cancer is not imaged by mammography. BI-RADS Category 2 Dictated by: Dictated on workstation # [id number]
== END ==
LOC: RAD 08:00
PROVIDERS: ATTEND Family Medicine
DX: Z12.31 Encounter for screening mammogram for malignant neoplasm of breast (principal)
CPT/HCPCS: 77063; 77067